=== PATIENT | male | born 1980 | race Caucasian/White ===

== ENCOUNTER 2019-03-27 13:46 | Emergency (ER) | payer BC ==
[~2019-03-27] VITALS: Ht 177.8 cm; Wt 81.7 kg
[~2019-03-27 13:46] MED LIST: ASCORBIC ACID; ATEN25 PO; Ativan1 MG PO; CARI350 PO; ERYT500; FAMO20 PO; HYDACE10B PO; HYDACE5 PO; METO5A PO; NAPR500 PO; OMEP20ER PO; OXYACE5T PO; OXYACE7.5T PO; RXTRAM50 PO; SULTRIDS PO; TRAM50 PO; Ventolin/Prove6.7 GM; [UNRECOGNIZED DRUG - OTHER]
[2019-03-27] MEDS ORDERED: ATENOLOL PO (14:13)
[2019-03-27 14:34] LABS: BASOPHILS ABSOLUTE AUTO 0.06 K/mm3 (0.00-0.23); BASOPHILS PERCENT AUTO 1 % (0-2); EOSINOPHILS PERCENT AUTO 1 % (0-6); Hematocrit 48.3 % (37.0-53.0); Hemoglobin 17.1 g/dL (13.5-17.5); IMMATURE GRAN ABSOLUTE AUTO 0.03 K/mm3 (0.00-0.10); IMMATURE GRAN PERCENT AUTO 0 % (0-1); LYMPHOCYTES PERCENT AUTO 13 % (21-46); MONOCYTES ABSOLUTE AUTO 0.71 K/mm3 (0.16-1.47); MONOCYTES PERCENT AUTO 8 % (4-13); Mean Corpuscular HGB 33.7 pg (26.0-34.0); Mean Corpuscular HGB Conc 35.4 g/dL (31.5-36.5); Mean Corpuscular Volume 95 fL (80-100); Mean Platelet Volume 9.3 fL (9.1-12.4); NEUTROPHILS ABSOLUTE AUTO 7.03 K/mm3 (1.96-9.15); NEUTROPHILS PERCENT AUTO 77 % (41-73); Platelet Count 252 K/mm3 (150-400); RDW Coefficient Variation 11.6 % (11.7-14.2); RDW Standard Deviation 40.4 fL (35.1-46.3); Red Blood Cell Count 5.08 M/mm3 (4.30-5.90); White Blood Cell Count 9.13 K/mm3 (4.00-11.30)
[2019-03-27 15:22] LABS: Alanine Aminotransfer (ALT/SGP 127 U/L (12-78); Albumin, Blood 4.3 g/dL (3.4-5.0); Albumin/Globulin Ratio 1.2 (0.8-1.8); Alk Phos 96 U/L (50-136); Anion Gap 7 mmol/L (6-16); Aspartate Aminotrans (AST/SGOT 70 U/L (12-37); Bilirubin, Total 0.6 mg/dL (0.1-1.0); Blood Urea Nitrogen 16 mg/dL (8-24); Bun/Creatinine Ratio 17.2 (12.0-20.0); CO2, Blood 25 mmol/L (21-32); Chloride, Blood 107 mmol/L (98-108); Creatinine, Blood 0.93 mg/dL (0.60-1.20); Globulin, Blood 3.7 g/dL (2.2-4.0); Glomerular Filtration Rate >60 (60-); Glucose, Blood 96 mg/dL (70-99); Potassium, Blood 3.7 mmol/L (3.5-5.5); Sodium, Blood 139 mmol/L (136-145); Troponin I <0.015 ng/mL (0.000-0.040)
[2019-03-27] MEDS ORDERED: ONDA4ODT MM (17:26)
[2019-03-27] MEDS ORDERED: BACITRAYCIN PLU28 GM TOP (17:58)
== END 2019-03-27 18:01 | disposition home or self-care (01) ==
LOC: ER 13:46
PROVIDERS: Emergency Medicine
DX: I47.1 Supraventricular tachycardia (principal); R11.2 Nausea with vomiting, unspecified; Z88.8 Allergy status to other drugs, medicaments and biological substances; Z88.0 Allergy status to penicillin; Z91.013 Allergy to seafood; Z79.899 Other long term (current) drug therapy; F17.220 Nicotine dependence, chewing tobacco, uncomplicated
CPT/HCPCS: 36415; 71046; 74176; 80053; 83690; 84484; 85025; 93005; 93010; 96361-59; 96374-59; 96375-59; 99285-25; J2405; J7120

== ENCOUNTER 2022-03-07 16:58 | Emergency (ER) | payer OTHER ==
[~2022-03-07] VITALS: Ht 175.3 cm; Wt 90.7 kg
[~2022-03-07 16:58] MED LIST changes: +ATENOLOL PO; +BACITRAYCIN PLU28 GM TOP; +ONDA4ODT MM
[2022-03-07 17:45] LABS: BASOPHILS ABSOLUTE AUTO 0.08 K/mm3 (0.00-0.23); BASOPHILS PERCENT AUTO 2 % (0-2); EOSINOPHILS ABSOLUTE AUTO 0.26 K/mm3 (0.00-0.68); EOSINOPHILS PERCENT AUTO 5 % (0-6); Hematocrit 44.8 % (37.0-53.0); Hemoglobin 16.1 g/dL (13.5-17.5); IMMATURE GRAN ABSOLUTE AUTO 0.01 K/mm3 (0.00-0.10); IMMATURE GRAN PERCENT AUTO 0 % (0-1); LYMPHOCYTES ABSOLUTE AUTO 1.28 K/mm3 (0.84-5.20); LYMPHOCYTES PERCENT AUTO 25 % (21-46); MONOCYTES ABSOLUTE AUTO 0.67 K/mm3 (0.16-1.47); MONOCYTES PERCENT AUTO 13 % (4-13); Mean Corpuscular HGB 33.9 pg (26.0-34.0); Mean Corpuscular HGB Conc 35.9 g/dL (31.5-36.5); Mean Corpuscular Volume 94 fL (80-100); Mean Platelet Volume 9.4 fL (9.1-12.4); NEUTROPHILS PERCENT AUTO 55 % (41-73); Platelet Count 190 K/mm3 (150-400); RDW Coefficient Variation 11.8 % (11.7-14.2); Red Blood Cell Count 4.75 M/mm3 (4.30-5.90)
[2022-03-07 18:01] LABS: Albumin, Blood 3.8 g/dL (3.4-5.0); Albumin/Globulin Ratio 1.1 (0.8-1.8); Bilirubin, Total 0.3 mg/dL (0.1-1.0); Bun/Creatinine Ratio 13.6 (12.0-20.0); Calcium, Blood 8.9 mg/dL (8.5-10.1); Creatinine, Blood 0.96 mg/dL (0.60-1.20); Globulin, Blood 3.6 g/dL (2.2-4.0); Potassium, Blood 4.1 mmol/L (3.5-5.5); Total Protein, Blood 7.4 g/dL (6.4-8.2)
== END 2022-03-07 20:57 | disposition home or self-care (01) ==
LOC: ER 16:58
PROVIDERS: Physician Assistant
DX: R00.2 Palpitations (principal); R74.01 Elevation of levels of liver transaminase levels; F17.220 Nicotine dependence, chewing tobacco, uncomplicated; Z86.79 Personal history of other diseases of the circulatory system; Z88.0 Allergy status to penicillin; Z91.013 Allergy to seafood; Z91.018 Allergy to other foods; Z79.899 Other long term (current) drug therapy
CPT/HCPCS: 36415; 71045; 80053; 84484; 85025

== ENCOUNTER 2024-06-28 20:22 | Observation (INO) | payer SELFPAY ==
[~2024-06-28] VITALS: Ht 172.7 cm; Wt 74.8 kg
[2024-06-28] MEDS ORDERED: Droperidol 5 mg/2 ml Vial IM ONE (20:35)
[2024-06-28] MEDS ORDERED: LORazepam 2 MG/ML 1ML Injection IM ONE (20:35)
[2024-06-28 20:52] LABS: BASOPHILS ABSOLUTE AUTO 0.12 K/mm3 (0.00-0.23); BASOPHILS PERCENT AUTO 1 % (0-2); EOSINOPHILS ABSOLUTE AUTO 0.26 K/mm3 (0.00-0.68); EOSINOPHILS PERCENT AUTO 2 % (0-6); Hematocrit 47.4 % (37.0-53.0); Hemoglobin 17.1 g/dL (13.5-17.5); IMMATURE GRAN ABSOLUTE AUTO 0.06 K/mm3 (0.00-0.10); IMMATURE GRAN PERCENT AUTO 0 % (0-1); LYMPHOCYTES ABSOLUTE AUTO 2.94 K/mm3 (0.84-5.20); LYMPHOCYTES PERCENT AUTO 18 % (21-46); MONOCYTES ABSOLUTE AUTO 1.68 K/mm3 (0.16-1.47); MONOCYTES PERCENT AUTO 10 % (4-13); Mean Corpuscular HGB 33.3 pg (26.0-34.0); Mean Corpuscular HGB Conc 36.1 g/dL (31.5-36.5); Mean Corpuscular Volume 92 fL (80-100); Mean Platelet Volume 9.2 fL (9.1-12.4); NEUTROPHILS ABSOLUTE AUTO 11.67 K/mm3 (1.96-9.15); NEUTROPHILS PERCENT AUTO 70 % (41-73); Platelet Count 284 K/mm3 (150-400); RDW Coefficient Variation 12.2 % (11.7-14.2); Red Blood Cell Count 5.14 M/mm3 (4.30-5.90); White Blood Cell Count 16.73 K/mm3 (4.00-11.30)
[2024-06-28 21:25] LABS: Salicylate <1.7 mg/dL (2.8-20.0)
[2024-06-28 21:27] LABS: Acetaminophen, Random <2.0 ug/mL (10.0-30.0); Alanine Aminotransfer (ALT/SGP 58 U/L (12-78); Albumin, Blood 3.8 g/dL (3.4-5.0); Alk Phos 117 U/L (50-136); Anion Gap 12 mmol/L (3-11); Aspartate Aminotrans (AST/SGOT 42 U/L (12-37); Bilirubin, Total 0.5 mg/dL (0.1-1.0); Blood Urea Nitrogen 14 mg/dL (8-24); Bun/Creatinine Ratio 13.3 (12.0-20.0); CO2, Blood 20 mmol/L (21-32); Calcium, Blood 8.8 mg/dL (8.5-10.1); Chloride, Blood 113 mmol/L (98-108); Creatinine, Blood 1.05 mg/dL (0.60-1.20); Ethanol (Alcohol), Blood, Med 308 mg/dL; Globulin, Blood 3.9 g/dL (2.2-4.0); Glomerular Filtration Rate 89 (60-); Glucose, Blood 139 mg/dL (70-99); Potassium, Blood 4.2 mmol/L (3.5-5.5); Sodium, Blood 141 mmol/L (136-145); Total Protein, Blood 7.7 g/dL (6.4-8.2)
[2024-06-29 04:34] LABS: Source, Urine Clean Catch
[2024-06-29 04:40] LABS: Appearance, Urine Clear (Clear); Bilirubin, Urine Neg (Neg); Blood, Urine Neg (Neg); Color, Urine Yellow (P-Yellow); Glucose Qualitative, Urine Neg (Neg); Ketones, Urine Neg (Neg); Leukocyte Esterase, Urine Neg (Neg); Nitrite, Urine Neg (Neg); Protein, Urine 1+ (Neg); Urobilinogen, Urine NORM (Normal)
[2024-06-29 04:58] LABS: U Benzodiazapine Screen DETECTED; U Cannabinoids Screen DETECTED
[2024-06-29 04:59] LABS: U Amphetamine Screen Not Detected; U Barbituate Screen Not Detected; U Buprenorphine Screen Not Detected; U Cocaine Screen Not Detected; U Methadone Screen Not Detected; U Methamphetamine Screen Not Detected; U Opiates Screen Not Detected; U Oxycodone Screen Not Detected; U Phencyclidine Screen Not Detected
[2024-06-29 06:17] VITALS: BP 127/82
== END 2024-06-29 06:27 | disposition home or self-care (01) ==
LOC: ER 20:22 → EOR 23:31
PROVIDERS: ADMIT Student in an Organized Health Care Education/Training Program
DX: F10.129 Alcohol abuse with intoxication, unspecified (principal); R45.851 Suicidal ideations; T44.7X2A Poisoning by beta-adrenoreceptor antagonists, intentional self-harm, initial encounter; Z91.013 Allergy to seafood; Z88.0 Allergy status to penicillin; Z79.899 Other long term (current) drug therapy; Z72.0 Tobacco use
CPT/HCPCS: 80053; 80320; 85025; 93005; 93010; 96372; 96372-59; 99285-25; G0378; G0480; J1790; J2060